=== PATIENT | female | born 2000 | race American Indian/Alaskan Native ===

== ENCOUNTER 2022-04-05 19:13 | Inpatient (IN) | payer MEDICAID ==
[2022-04-05] MEDS ORDERED: LACTATED RINGERS 2,000 ML ONE (19:27)
[2022-04-05] MEDS ORDERED: fentaNYL 100 MCG/2 ML INJ IV ONE ×2 (20:05→20:42)
[2022-04-05] MEDS ORDERED: OXYTOCIN DRIP 30,000 MILLIUNITS/500 ML BAG IV ONE (20:14)
[2022-04-05] MEDS ORDERED: MINERAL OIL 30 ML ORAL LIQD ONE (20:14)
[2022-04-05] MEDS ORDERED: ePHEDrine SULFATE 50 MG/1 ML INJ IV PRN (20:40)
[2022-04-05] MEDS ORDERED: MINERAL OIL 30 ML ORAL LIQD PO PRN (20:40)
[2022-04-05] MEDS ORDERED: TERBUTALINE 1 MG/1 ML INJ SUB-Q PRN (20:40)
[2022-04-05] MEDS ORDERED: IBUPROFEN 800 MG TAB PO PRN (20:43)
[2022-04-05] MEDS ORDERED: diphenhydrAMINE 25 MG CAP PO PRN (20:44)
[2022-04-05] MEDS ORDERED: WITCH HAZEL/ GLYCERIN PAD TP PRN (20:44)
[2022-04-05] MEDS ORDERED: LANOLIN/ZINC/DIMETHICONE (LANSINOH) 7 GM TP PRN (20:44)
[2022-04-05] MEDS ORDERED: LACTATED RINGERS 1,000 ML IV SCH (20:45)
--- NOTE | 2022-04-05 20:50 | History and Physical Report ---
History of Present Illness Date of examination: 04/05/22 Date of admission: 04/05/2022 Chief complaint: Intense Labor Pains History of present illness: Care at [facility]; No records; Patient states course was uncomplicated. Past History Past Medical History: no pertinent history Past Surgical History: no surgical history Family/Genetic History: diabetes (PGF, Aunt), cancer (Lung Ca: uncle) Social history: single - Obstetrical History Expected Date of Delivery: 04/23/22 Actual Gestation: 37 Week(s) 3 Day(s) : 1 Medications and Allergies Allergies Allergy/AdvReac Type Severity Reaction Status Date / Time amoxicillin Allergy Mild Unknown Verified 04/05/22 19:52 Active Meds: Active Medications Ephedrine Sulfate (Ephedrine Sulfate 50 Mg/1 Ml Inj) 10 mg IV Q2M PRN PRN Reason: Hypotension Lactated Ringer's (Lactated Ringers) 1,000 mls @ 125 mls/hr IV DIRECT COLE Oxytocin/Sodium Chloride (Pitocin/Ns 30 Unit/500ml) 30 units in 500 mls @ 40 mls/hr IV TITR COLE; Protocol Ibuprofen (Ibuprofen 800 Mg Tab) 800 mg PO Q8H PRN PRN Reason: Pain, Mild (1-3) Mineral Oil (Mineral Oil 30 Ml Oral Liqd) 30 ml PO QHS PRN PRN Reason: Constipation Terbutaline Sulfate (Terbutaline 1 Mg/1 Ml Inj) 0.25 mg SUB-Q ONCE PRN PRN Reason: Hyperstimulation/Hypertonicity Review of Systems All systems: negative - Vital Signs Vital signs: Vital Signs Temp 98.2 F 04/05/22 19:51 Temp Pulse Resp BP Pulse Ox 97.9 F 83 121/61 94 04/05/22 20:45 04/05/22 20:42 04/05/22 20:09 04/05/22 20:42 - Physical Exam Breasts: Positive: normal Cardiovascular: Regular rate Lungs: Positive: Clear to auscultation, Normal air movement Abdomen: Positive: normal appearance, soft, normal bowel sounds Genitourinary (Female): Positive: normal external genitalia, normal perenium Vagina: Positive: normal moisture Uterus: Positive: enlarged Anus/Rectum: Positive: normal perianal skin Extremities: Positive: normal - Obstetrical FHR: category 1 Uterine Contraction Monitor Mode: External Cervical Dilatation: 9.5 (AROM of a small amount clear fluid at 2011) Cervical Effacement Percentage: 100 station: +1 Uterine Contraction Pattern: Regular Uterine Tone Measurement Phase: Resting Uterine Contraction Intensity: Moderate Results All other labs normal. Assessment and Plan A: IUP @ 37 3/7 Weeks Category I Tracing Active Labor GBS Unknown (patient states it is Negative) P: Admit to L&D Per Routine Orders AROM Anticipate
[2022-04-05] MEDS ORDERED: OXYTOCIN DRIP 30 UNITS/500 ML BAG IV SCH (21:00)
--- NOTE | 2022-04-05 21:05 | Procedure Note ---
OB Delivery Note - Delivery Date of Delivery: 04/05/22 (2015) Surgeon: INDRA CURRY Estimated blood loss: 100cc - Vaginal Delivery presentation: vertex Delivery position: OA Intrapartum events: none Delivery induction: none Delivery augmentation: rupture of membranes Delivery monitor: external FHT, external uterine Route of delivery: Delivery placenta: spontaneous Delivery cord: 3 umbilical vessels Episiotomy: none Delivery laceration: none Anesthesia: none Delivery comments: of a live 5'5 female infant over a intact perineum under IV Pain Control with Apgars of 8 and 9 at 2015 on 04/05/2022. Infant directly to maternal abd/chest; skin to skin contact. Spontaneous delivery of placenta complete and intact with [place] side presenting at 2022. Fundus is firm and midline located 4 below the U. Lochia is scant. Delayed cord clamping and cutting; Cut by Father of the Baby. Cord blood collected. - A at 1 minute: 8 at 5 minutes: 9 Gender: Female (5'5)
[2022-04-05 21:12] LABS: Hematocrit 36.6 % (30.3-42.9); Hemoglobin 12.4 gm/dl (10.1-14.3); Mean Corpuscular HGB Conc 34 % (30-34); Mean Corpuscular Volume 95 fl (79-97); Platelet Count 281 K/mm3 (140-440); Red Blood Count 3.86 M/mm3 (3.65-5.03); Red Cell Distribution Width 13.1 % (13.2-15.2)
--- NOTE | 2022-04-06 07:50 | Progress Note ---
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 Patient reports: appetite normal, voiding normally, pain well controlled, ambulating normally [place]: doing well, bottle feeding Objective - Vital Signs Latest vital signs: Vital Signs Temp Pulse BP Pulse Ox 04/06/22 06:14 98.5 F 04/06/22 06:11 58 L 100/54 04/06/22 01:19 76 122/75 04/06/22 01:18 68 97 04/05/22 23:00 98.2 F 04/05/22 21:30 75 87 04/05/22 21:26 83 71 L 04/05/22 21:24 75 81 L 04/05/22 21:21 64 93 04/05/22 21:17 65 93 04/05/22 21:16 72 100 04/05/22 21:11 105 H 96 04/05/22 21:08 73 93 04/05/22 21:06 81 100 04/05/22 21:01 95 H 90 04/05/22 21:00 80 90 04/05/22 20:56 74 100 04/05/22 20:54 92 H 92 04/05/22 20:51 72 96 04/05/22 20:49 75 128/72 04/05/22 20:48 70 92 04/05/22 20:46 75 100 04/05/22 20:45 97.9 F 04/05/22 20:42 83 94 04/05/22 20:41 70 100 04/05/22 20:36 67 100 04/05/22 20:34 71 91 04/05/22 20:30 80 100 04/05/22 20:28 85 92 04/05/22 20:25 91 H 100 04/05/22 20:20 71 100 04/05/22 20:16 90 88 04/05/22 20:15 94 H 98 04/05/22 20:10 55 L 99 04/05/22 20:09 90 121/61 83 L 04/05/22 20:05 65 100 04/05/22 20:00 67 74 L 04/05/22 19:51 98.2 F Intake and Output 04/05/22 04/06/22 04/06/22 22:59 06:59 14:59 Other: Weight 68.039 kg Estimated Blood Loss 100 - Exam Breasts: Present: normal Cardiovascular: Present: Regular rate Lungs: Present: Clear to auscultation, Normal air movement Abdomen: Present: normal appearance, soft, normal bowel sounds Uterus: Present: normal, firm, fundal height below umbilicus Extremities: Present: normal - Labs Labs: Abnormal lab results 04/05/22 Range/Units 20:00 WBC 14.3 H (4.5-11.0) K/mm3 RDW 13.1 L (13.2-15.2) %
[2022-04-06 08:23] LABS: Hematocrit 35.1 % (30.3-42.9); Hemoglobin 11.5 gm/dl (10.1-14.3)
[2022-04-06] MEDS: PRENATAL VIT27-FE FUMARATE-FOLIC ACID VIT TAB PO SCH ×2 (12:21→13:22)
[2022-04-06] MEDS: HYDROcodone/ACETAMINOPHEN 5-325 MG TAB PO PRN ×2 (12:21→23:18)
[2022-04-07 09:24] VITALS: BP 127/82
--- NOTE | 2022-04-07 10:02 | Discharge Summary ---
Providers - Providers Date of Admission: 04/05/22 21:09 Date of discharge: 04/07/22 Attending physician: MINDY WHITTAKER Dr. NWaWka 04/07/22 05:54 Consult to Mental Health [CONS] Routine Reason For Exam: [place] score of 14 Primary care physician: MINDY WHITTAKER Hospitalization Reason for admission: active labor Delivery: Episiotomy: none Laceration: none Other procedures: none complications: none Discharge diagnosis: IUP at term delivered baby: female Condition at discharge: Good Disposition: 01 HOME / SELF CARE / HOMELESS Plan - Provider Discharge Summary Activity: no sex for 6 weeks, no heavy lifting 4 weeks, no strenuous exercise Diet: routine Instructions: routine Additional instructions: [] Smoking cessation referral if applicable(refer to patient education folder for contact #) [] Refer to [facility]'s [facility] Booklet Call your doctor immediately for: * Fever > 100.5 * Heavy vaginal bleeding ( >1 pad per hour) * Severe persistent headache * Shortness of breath * Reddened, hot, painful area to leg or breast * Drainage or odor from incision. * Keep incision clean and dry at all times and follow doctor's instructions regarding bathing/showering - Follow up plan Follow up: MINDY WHITTAKER MD [Primary Care Provider] - 6 Weeks
[2022-04-07] MEDS: HYDROcodone/ACETAMINOPHEN 5-325 MG TAB PO PRN (11:21)
[2022-04-07] MEDS: PRENATAL VIT27-FE FUMARATE-FOLIC ACID VIT TAB PO SCH (11:21)
--- NOTE | 2022-04-07 14:39 | History and Physical Report ---
GP History & Physical - History of Present Illness Date of admission: 04/05/22 Date of Examination: 04/07/22 Reason for Admission: Other () History of Present Illness: Admission Note:21 Year old female was seen in the [facility] hospital for possible depression. Patient seen in her room with baby daddy and new baby girl. Patient states that " I am feeling ok". Patient denies any SI/HI at this time, but asks if she could see a therapist when she leaves that hospital so as to "Avoid SI thoughts" Patient was of good disposition and alert and oriented. Patient was cooperative during this interview. Patient would be referred for outpatient therapy. Psych will sign off at this time. HPI PAST PSYCHIATRIC HISTORY: Diagnoses: depression Suicide attempts or Self-harm behavior:No Prior psychiatric hospitalizations. Denies Substance Abuse history:Denies Previous psychiatric medications tried: No Outpatient treatment: No PAST MEDICAL HISTORY: Family Psychiatric History None reported or documented SOCIAL HISTORY Marital Status: With partner Living Arrangements: With partner Employment Status: Access to guns/weapons:No Education: History of Abuse: No Legal History: No REVIEW OF SYSTEMS Constitutional: Negative for weight loss ENT: Negative for stridor Respiratory: Negative for cough or hemoptysis All other systems reviewed and are negative Diagnoses: Treatment Plan Patient will be referred to outpatient therapy Patient will be given resources neded for outpatient therapy Patient will be provided with a safe and structured environment. Patient's physical health needs will be addressed by the Hospitalist. Hospitalist Consulted Labs including CBC, CMP, Lipid profile and Hemoglobin A1C ordered Social Assessment will be completed and the Makeup Artistry Instructor will work with patient and family to ensure a suitable and safe disposition The patient agreed on the treatment plan, understood the risk, benefit, alternative treatment, potential consequence of no treatment, and gave informed consent Legal Status: Voluntary Patient Problems: Current Active Problems (normal spontaneous vaginal delivery) (Acute) Reaction to Hospitalization: Accepting Medications and Allergies Allergies Allergy/AdvReac Type Severity Reaction Status Date / Time amoxicillin Allergy Mild Unknown Verified 04/05/22 19:52 Home Medications Medication Instructions Recorded Confirmed Last Taken Type Vit-Fe Fumar-FA [ 1 each PO QDAY tablet 04/07/22 Unknown Rx Vitamin] Active Meds: Active Medications Hydrocodone Bitart/Acetaminophen (Hydrocodone/Acetaminophen 5-325 Mg Tab) 2 each PO Q6H PRN PRN Reason: Pain, Moderate (4-6) Last Admin: 04/07/22 11:21 Dose: 2 each Bisacodyl (Bisacodyl 10 Mg Rect Supp) 10 mg [place] BID PRN PRN Reason: Constipation Diphenhydramine HCl (Diphenhydramine 25 Mg Cap) 25 mg PO Q6H PRN PRN Reason: Itching Multi-Ingredient Ointment (Lanolin/Zinc/Dimethicone (Lansinoh) 7 Gm) 1 applic TP PRN PRN PRN Reason: Sore Nipples Multivitamins/Iron/Calcium ( [id number] Fumarate-Folic Acid Vit Tab) 1 each PO QDAY COLE Last Admin: 04/07/22 11:21 Dose: 1 each Witch Halie/Glycerin (Witch Halie/ Glycerin Pad) 1 each TP PRN PRN PRN Reason: Hemorrhoid/cleansing/soothing Results - Results Labs/Vitals: Laboratory Last Values WBC 14.3 K/mm3 (4.5-11.0) H 04/05/22 20:00 RBC 3.86 M/mm3 (3.65-5.03) 04/05/22 20:00 Hgb 11.5 gm/dl (10.1-14.3) 04/06/22 07:48 Hct 35.1 % (30.3-42.9) 04/06/22 07:48 MCV 95 fl (79-97) 04/05/22 20:00 MCH 32 pg (28-32) 04/05/22 20:00 MCHC 34 % (30-34) 04/05/22 20:00 RDW 13.1 % (13.2-15.2) L 04/05/22 20:00 Plt Count 281 K/mm3 (140-440) 04/05/22 20:00 SARS-CoV-2 (PCR) Negative (Negative) 04/06/22 14:50 Blood Type O POSITIVE 04/05/22 20:00 Antibody Screen Negative 04/05/22 20:00 Last Vital Signs Temp 97.9 F 04/07/22 07:23 Pulse 57 L 04/07/22 07:23 Resp 20 04/07/22 07:23 BP 127/82 04/07/22 07:23 Pulse Ox 100 04/07/22 07:23 Physical Examination - Constitutional Vitals: Vital Signs Temp Pulse Resp BP Pulse Ox 97.9 F 57 L 20 127/82 100 04/07/22 07:23 04/07/22 07:23 04/07/22 07:23 04/07/22 07:23 04/07/22 07:23 Temperature -Last 24 Hours Temperature 97.9 F Temperature 98.3 F Temperature 98.1 F Mental Status Exam - Vital signs Last Vital Signs Temp 97.9 F 04/07/22 07:23 Pulse 57 L 04/07/22 07:23 Resp 20 04/07/22 07:23 BP 127/82 04/07/22 07:23 Pulse Ox 100 04/07/22 07:23 Physician Certification - Certification Statement Physician Certification Statement: This is an acknowledgement statement that EMY COLLINS is a 21 year old F who requires inpatient psychiatric admission for treatment which could reasonably be expected to improve the patient's condition for Estimated period of time patient will need to remain in the hospital: [ ] Plan for post-hospital care: [ ]
== END 2022-04-07 15:00 | disposition home or self-care (01) | DRG 775 ==
LOC: TRG 19:13 → APU 19:16 → LD 19:52 → TRG 21:09 → OB 04-06 08:11
PROVIDERS: ADMIT Obstetrics & Gynecology; ATTEND Obstetrics & Gynecology
PROC: 10E0XZZ Delivery of Products of Conception, External Approach (ICD-10-PCS; principal; 2022-04-05)
DX: O62.3 Precipitate labor (principal); Z3A.37 37 weeks gestation of pregnancy; Z37.0 Single live birth; Z20.822 Contact with and (suspected) exposure to COVID-19; Z88.8 Allergy status to other drugs, medicaments and biological substances; Z83.3 Family history of diabetes mellitus; Z80.1 Family history of malignant neoplasm of trachea, bronchus and lung
CPT/HCPCS: 36415; 85014; 85018; 85027; 86850; 86900; 86901; G0378; J3010; U0003